=== PATIENT | female | born 1960 | race Caucasian/White ===

== ENCOUNTER 2019-10-31 13:15 | Outpatient (CLI) | payer BC, SELFPAY ==
--- NOTE | 2019-10-31 14:14 | MM_ITS ---
WS: [id number] RIGHT DIGITAL MAMMOGRAPHY WITH CAD CLINICAL INFORMATION: CALS RT BREAST COMPARISON: October 04, 2019 TECHNIQUE: 4 views of the right breast were obtained. FINDINGS: Scattered fibroglandular densities of the right breast. Again seen is the cluster of punctate calcifi cations upper outer right breast in a linear distribution. These are punctate and somewhat coarse in appearance and probably benign. Recommend 6 month follow-up right breast diagnostic mammography to as sess for change. MM/[place] [id number] IMPRESSION: BI-RADS: 3-Probably Benign FOLLOW UP: 6 Month Follow-up
== END 2019-10-31 13:16 | disposition home or self-care (01) ==
LOC: RADSHAW 13:20
PROVIDERS: Family Provider Electrodiagnostic Medicine; PCP Electrodiagnostic Medicine; Visit Provider Electrodiagnostic Medicine
DX: R92.1 Mammographic calcification found on diagnostic imaging of breast (principal)
CPT/HCPCS: 77065

== ENCOUNTER 2020-03-19 12:56 | Outpatient (CLI) | payer BC, SELFPAY ==
--- NOTE | 2020-03-23 11:25 | ONC FU_ITS ---
Dr. Reece Patient Follow-Up Note Patient: Teresa Arrington Unit #: [id number]: 1960 Dicatated By: Virgilio Reece M.D.Date of Visit:March 19, 2020 Onc Med Follow-up/Prog Note Chief Complaint: Breast cancer. 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 She was found on routine mammogram screening in June of 2016 to have a developing density with indistinct margins in the lateral aspect of the left breast, BI-RADS Category 0. A diagnostic mammogram study with ultrasound 07/22/2016 was felt to be most likely benign. A repeat mammogram on 12/30/2016 was again BI-RADS 0. Breast ultrasound on 01/11/2017 showed a 1.4 x 0.6 x 1.5 cm solid hypoechoic lesion in the left breast at the 1 to 2:00 position, BI-RADS 4 category, suspicious. On 01/22/2017 she underwent ultrasound-guided biopsy of the left breast mass. Pathology showed infiltrating adenocarcinoma with medullary features. ER assay was positive at 97% and progesterone assay was positive at 94%. HER-2/christ assay was nonamplified and considered to be negative. The breast prognostic profile showed ER positive at 97% and VA positive at 94%, both strong intensity. The HER-2/christ was nonamplified, 1+ by IHC, amplification ratio by FISH of 1.0 with 1.8 HER-2 copies/cell. The Ki-67 was unfavorable at 28%. On 02/25/2017 show underwent left breast lumpectomy with axillary sentinel lymph node biopsy. Pathology showed grade 2 infiltrating adenocarcinoma with medullary features. The tumor measured 2.0 x 1.8 cm. There was tumor extending to the superior margin. The other margins were free. There was no involvement in 1 axillary sentinel lymph node. Oncotype DX showed a recurrence score of 20, low intermediate risk range, corresponding to a 10 year risk of distant recurrence of 13% following hormonal therapy. She opted not to take adjuvant chemotherapy. She was then given radiation to the left breast. She completed treatment on 05/20/2017 to a total dose of 6000 cGy. Adjuvant hormonal therapy with anastrozole 1 mg daily began in April 2017. Her other medical illnesses include hyperlipidemia, GERD, and anxiety/depression. She is a nonsmoker. INTERIM HISTORY: The anastrozole was stopped as of her follow-up visit on 05/26/2018 due to worsening joint pain and other side effects, including hot flashes and mood changes. It was later restarted, but only for a short time, as her symptoms then worsened again. In November 2018 she began a trial therapy with exemestane 25 mg daily. It was stopped in January due to fatigue and generalized swelling. In February 2019 she tried going back on the anastrozole, but she then stopped it due to recurrence of musculoskeletal pain and swelling. I had seen her for a follow-up visit on 05/24/2019. At that point she was feeling better, and she agreed to begin a trial of further adjuvant hormonal therapy with tamoxifen 20 mg daily. She had stopped tamoxifen within one month due to multiple side effects, including lower abdominal cramping which felt like she was having a menstrual period. She also felt like she was going psycho . She was then followed on observation/expectant management. She is seen for a follow-up visit. She has been feeling good generally. She has good energy and she has normal activity. ECOG score 0. Her appetite is good. She has not had fever. She says her hot flashes are going away now. She has no shortness of breath, cough, or chest pain. She says her acid reflux is not too bad. She has no other GI or complaints. She has no significant joint or bone pain. She does not complain of headache or dizziness. She has a little bit of numbness/tingling in her left hand. She has no other focal neurologic symptoms. Medications: Cholecalciferol 1 (1000 Units) Tablet Oral daily, Citalopram Hydrobromide 1 (20 mg) Tablet Oral daily, Claritin 1 Tablet (of 10 mg) Oral daily, Omeprazole 1 (40 mg) Capsule Delayed Release Oral daily PRN, Simvastatin 1 (40 mg) Tablet Oral daily, Turmeric 2 Capsule Oral daily, Xanax 0.5 (0.25 mg) Tablet Oral at bedtime Allergies: Codeine Sulfate Review of Systems: Constitutional - She has good energy and she has normal activity. Appetite is good and weight is stable. Her hot flashes are going away. No fever. ECOG score is 0, ENMT - Her sinus symptoms have improved with Claritin. No mouth sores. No sore throat or difficulty swallowing, Hematologic/Lymphatic - No abnormal bruising or bleeding, Respiratory - No shortness of breath. No cough. No pleuritic pain or hemoptysis, Cardiovascular - No angina pain. No palpitations, Gastrointestinal - No nausea or vomiting. Her acid reflux is not too bad. No diarrhea or constipation. No blood in the stool or black stools, Genitourinary (F) - No dysuria or hematuria. No urinary frequency. No urgency or incontinence, Musculoskeletal - She has no joint or bone pain, Integumentary - No skin complications, Neurologic - No headache or dizziness. She has a little bit of numbness/tingling in her left hand. She has no other focal neurologic symptoms, Psychiatric - Her anxiety is managed adequately with alprazolam. No depression. No insomnia. Vital Signs: Performed on March 19, 2020 13:14 Height - 59.00 in Weight - 156.0 lbs (LOW) BSA - 1.66 sq.m BMI - 31.51 (HIGH) Temperature - 98.1 F (LOW) Pulse - 76 /min Respiration - 18 /min BP - 139/83 mm(hg) O2 Sat - 96 % Pain - 0 Physical Examination: Constitutional - She looks good generally, Eyes - Sclerae nonicteric. Conjunctivae clear, ENMT - No lesions noted in the oral cavity, Hematologic/Lymphatic - No cervical or clavicular adenopathy, Respiratory - Lungs are clear with good air movement bilaterally, Cardiovascular - Heart rhythm is regular. There is no murmur, gallop, or rub noted, Breasts - Both breasts are generally firm. There are no breast masses noted. There is no axillary adenopathy, Abdomen - Moderately distended. Liver and spleen are not enlarged. There is no abdominal mass or ascites noted and there is no inguinal adenopathy, Extremities - No edema, Neurologic - No focal neurologic deficits noted. Impression: 1. This is a perimenopausal patient with left breast cancer, specifically a grade 2 infiltrating adenocarcinoma with medullary features, stage IA (T1c, N0, M0), ER/VA positive and HER-2/christ nonamplified. 2. She underwent left breast lumpectomy with axillary sentinel lymph node biopsy on 02/25/2017. 3. She was given radiation to the left breast, completed on 05/20/2017 to a total dose of 6000 cGy. 4. Adjuvant hormonal therapy with anastrozole 1 mg daily began in April 2017. 5. She had mild osteopenia on her baseline bone density, T score -1.3. Her other medical illnesses include: 6. Hyperlipidemia. 7. GERD. 8. Anxiety/depression. She initially had experienced some hot flashes and some mood change with the anastrozole, but she had otherwise been tolerating it well. In May 2018 she presented with some new joint pain. It was assumed to be due to the anastrozole. I did have her stop taking it temporarily, but it was later restarted, as she had noticed no significant difference while she was off the medication. During the next year she was on and off treatment with both exemestane and anastrozole. In April 2019 she began a trial of further adjuvant hormonal therapy with tamoxifen, but she experienced multiple side effects, and she stopped taking it within one month. As she was felt to have low-risk disease, she was then followed on observation/expectant management. Overall, she has been doing very well clinically since she stopped the tamoxifen. Thus far during follow-up there has been no evidence of recurrence of the breast cancer. Plan: She remains on observation/expectant management. She will be scheduled for a follow-up visit in 6 months. Signed By: Virgilio Reece M.D. <<Signature on File>>
== END 2020-03-19 12:57 | disposition home or self-care (01) ==
LOC: ONCMED 13:00
PROVIDERS: PCP Electrodiagnostic Medicine; Visit Provider Internal Medicine Medical Oncology
DX: Z08 Encounter for follow-up examination after completed treatment for malignant neoplasm (principal); Z85.3 Personal history of malignant neoplasm of breast; E78.5 Hyperlipidemia, unspecified; K21.9 Gastro-esophageal reflux disease without esophagitis; F41.8 Other specified anxiety disorders; M85.80 Other specified disorders of bone density and structure, unspecified site; Z92.23 Personal history of estrogen therapy; Z92.3 Personal history of irradiation

== ENCOUNTER 2020-04-15 07:13 | Outpatient (CLI) | payer BC, SELFPAY ==
--- NOTE | 2020-04-15 07:21 | MM_ITS ---
WS: [id number] BILATERAL DIGITAL DIAGNOSTIC MAMMOGRAM MAMMOGRAPHY WITH CAD CLINICAL INFORMATION: 6 MO F/U ABNORMAL MAMMOGRAM;HX OF BREAST CA COMPARISON: 10/31/2019 and 10/04/2019 September 26, 2018 TECHNIQUE: Bilateral CC, MLO, and ML views. FINDINGS: Scattered fibroglandular densities of the right breast. Again seen is the cluster of punctate calcifi cations upper outer right breast in a linear distribution. These are punctate and somewhat coarse in appearance and stable. Recommend return to annual diagnostic mammography. MM/[place] [id number] IMPRESSION: BI-RADS: 2-Benign FOLLOW UP: 1 Year Follow-up
== END 2020-04-15 07:14 | disposition home or self-care (01) ==
LOC: RADSHAW 07:15
PROVIDERS: PCP Electrodiagnostic Medicine; Visit Provider Internal Medicine Medical Oncology
DX: Z85.3 Personal history of malignant neoplasm of breast (principal); R92.8 Other abnormal and inconclusive findings on diagnostic imaging of breast
CPT/HCPCS: 77065

== ENCOUNTER 2020-09-26 14:49 | Outpatient (CLI) | payer BC, SELFPAY ==
--- NOTE | 2020-09-29 16:27 | ONC FU_ITS ---
Dr. Reece Patient Follow-Up Note Patient: Teresa Arrington Unit #: [id number]: [id number] Dicatated By: Virgilio Reece M.D.Date of Visit:Sep 26, 2020 Onc Med Follow-up/Prog Note Chief Complaint: Breast cancer. 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 She was found on routine mammogram screening in June of 2016 to have a developing density with indistinct margins in the lateral aspect of the left breast, BI-RADS Category 0. A diagnostic mammogram study with ultrasound 07/22/2016 was felt to be most likely benign. A repeat mammogram on 12/30/2016 was again BI-RADS 0. Breast ultrasound on 01/11/2017 showed a 1.4 x 0.6 x 1.5 cm solid hypoechoic lesion in the left breast at the 1 to 2:00 position, BI-RADS 4 category, suspicious. On 01/22/2017 she underwent ultrasound-guided biopsy of the left breast mass. Pathology showed infiltrating adenocarcinoma with medullary features. ER assay was positive at 97% and progesterone assay was positive at 94%. HER-2/christ assay was nonamplified and considered to be negative. The breast prognostic profile showed ER positive at 97% and ID positive at 94%, both strong intensity. The HER-2/christ was nonamplified, 1+ by IHC, amplification ratio by FISH of 1.0 with 1.8 HER-2 copies/cell. The Ki-67 was unfavorable at 28%. On 02/25/2017 show underwent left breast lumpectomy with axillary sentinel lymph node biopsy. Pathology showed grade 2 infiltrating adenocarcinoma with medullary features. The tumor measured 2.0 x 1.8 cm. There was tumor extending to the superior margin. The other margins were free. There was no involvement in 1 axillary sentinel lymph node. Oncotype DX showed a recurrence score of 20, low intermediate risk range, corresponding to a 10 year risk of distant recurrence of 13% following hormonal therapy. She opted not to take adjuvant chemotherapy. She was then given radiation to the left breast. She completed treatment on 05/20/2017 to a total dose of 6000 cGy. Adjuvant hormonal therapy with anastrozole 1 mg daily began in April 2017. Her other medical illnesses include hyperlipidemia, GERD, and anxiety/depression. She is a nonsmoker. INTERIM HISTORY: The anastrozole was stopped as of her follow-up visit on 05/26/2018 due to worsening joint pain and other side effects, including hot flashes and mood changes. It was later restarted, but only for a short time, as her symptoms then worsened again. In November 2018 she began a trial therapy with exemestane 25 mg daily. It was stopped in January due to fatigue and generalized swelling. In February 2019 she tried going back on the anastrozole, but she then stopped it due to recurrence of musculoskeletal pain and swelling. I had seen her for a follow-up visit on 05/24/2019. At that point she was feeling better, and she agreed to begin a trial of further adjuvant hormonal therapy with tamoxifen 20 mg daily. She had stopped tamoxifen within one month due to multiple side effects, including lower abdominal cramping which felt like she was having a menstrual period. She also felt like she was going psycho . She was then followed on observation/expectant management. She is seen for a follow-up visit. She has been feeling good generally. She has good energy and activity tolerance. ECOG score is 0. Her appetite is good. She has not had fever. She still has some hot flashes and night sweating. She has no shortness of breath, cough, or chest pain. She has a little bit of acid reflux. She has no other GI or complaints. Her joint pain is better, and it bothers her just occasionally now. She has a little bit of numbness in her hands. She has no other focal neurologic symptoms. Medications: Cholecalciferol 1 (1000 Units) Tablet Oral daily, Citalopram Hydrobromide 1 (20 mg) Tablet Oral daily, Claritin 1 Tablet (of 10 mg) Oral daily, Omeprazole 1 (40 mg) Capsule Delayed Release Oral daily PRN, Simvastatin 1 (40 mg) Tablet Oral daily, Turmeric 2 Capsule Oral daily, Xanax 0.5 (0.25 mg) Tablet Oral at bedtime Allergies: Codeine Sulfate Review of Systems: Constitutional - She has good energy and activity tolerance. Appetite is good and her weight is stable. She has not had fever. She does have some hot flashes and night sweating. ECOG score 0, ENMT - Her sinus symptoms have improved with Claritin. No mouth sores. No sore throat or difficulty swallowing, Hematologic/Lymphatic - No abnormal bruising or bleeding, Respiratory - No shortness of breath. No cough. No pleuritic pain or hemoptysis, Cardiovascular - No angina pain. No palpitations, Gastrointestinal - No nausea or vomiting. She has a little bit of acid reflux. No diarrhea or constipation. No blood in the stool or black stools, Genitourinary (F) - No dysuria or hematuria. No urinary frequency. No urgency or incontinence, Musculoskeletal - She has just occasional joint pain now, Integumentary - No skin rash, Neurologic - No headache or dizziness. She has a little bit of numbness in her hands. No other focal neurologic symptoms, Psychiatric - No anxiety or depression. No insomnia. Vital Signs: Performed on Sep 26, 2020 15:56 Height - 59.00 in Weight - 158.6 lbs (HIGH) BSA - 1.67 sq.m BMI - 32.03 (HIGH) Temperature - 98.6 F Pulse - 71 /min Respiration - 18 /min BP - 148/79 mm(hg) (HIGH) O2 Sat - 97 % Pain - 0 Physical Examination: Constitutional - She looks good generally, Eyes - Sclerae nonicteric. Conjunctivae clear, ENMT - No lesions noted in the oral cavity, Hematologic/Lymphatic - No cervical, clavicular, or axillary adenopathy, Respiratory - Lungs are clear with good air movement bilaterally, Cardiovascular - Heart rhythm is regular. There is no murmur, gallop, or rub noted, Abdomen - Moderately distended. Liver and spleen are not enlarged. There is no abdominal mass or ascites noted and there is no inguinal adenopathy, Extremities - No edema, Neurologic - No focal neurologic deficits noted. Impression: 1. This is a perimenopausal patient with left breast cancer, specifically a grade 2 infiltrating adenocarcinoma with medullary features, stage IA (T1c, N0, M0), ER/ID positive and HER-2/christ nonamplified. 2. She underwent left breast lumpectomy with axillary sentinel lymph node biopsy on 02/25/2017. 3. She was given radiation to the left breast, completed on 05/20/2017 to a total dose of 6000 cGy. 4. Adjuvant hormonal therapy with anastrozole 1 mg daily began in April 2017. 5. She had mild osteopenia on her baseline bone density, T score -1.3. Her other medical illnesses include: 6. Hyperlipidemia. 7. GERD. 8. Anxiety/depression. She initially had experienced some hot flashes and some mood change with the anastrozole, but she had otherwise been tolerating it well. In May 2018 she presented with some new joint pain. It was assumed to be due to the anastrozole. I did have her stop taking it temporarily, but it was later restarted, as she had noticed no significant difference while she was off the medication. During the next year she was on and off treatment with both exemestane and anastrozole. In April 2019 she began a trial of further adjuvant hormonal therapy with tamoxifen, but she experienced multiple side effects, and she stopped taking it within one month. As she was felt to have low-risk disease, she was then followed on observation/expectant management. Overall, she has been doing very well clinically since she stopped the tamoxifen. Thus far during follow-up there has been no evidence of recurrence of the breast cancer. Plan: She remains on observation/expectant management. Her yearly diagnostic mammogram is due in October, and that will be scheduled. I will just plan to see her again in conjunction with her next yearly mammogram. Signed By: Virgilio Reece M.D. <<Signature on File>>
== END 2020-09-26 14:50 | disposition home or self-care (01) ==
LOC: ONCMED 14:53
PROVIDERS: PCP Electrodiagnostic Medicine; Visit Provider Internal Medicine Medical Oncology
DX: Z08 Encounter for follow-up examination after completed treatment for malignant neoplasm (principal); Z85.3 Personal history of malignant neoplasm of breast; M85.80 Other specified disorders of bone density and structure, unspecified site; E78.5 Hyperlipidemia, unspecified; K21.9 Gastro-esophageal reflux disease without esophagitis; F41.9 Anxiety disorder, unspecified; F32.9 Major depressive disorder, single episode, unspecified; Z79.899 Other long term (current) drug therapy; Z90.12 Acquired absence of left breast and nipple; Z92.3 Personal history of irradiation
CPT/HCPCS: G0463

== ENCOUNTER 2021-04-16 11:04 | Outpatient (CLI) | payer OTHER, SELFPAY ==
--- NOTE | 2021-04-16 11:08 | MM_ITS ---
WS: [id number] DIAGNOSTIC BILATERAL DIGITAL MAMMOGRAM WITH CAD HISTORY: HX OF BREAST CA COMPARISON: 04/15/2020 and 10/04/2019 and 09/26/2018 TECHNIQUE: Bilateral craniocaudad, mediolateral oblique, and mediolateral views are submitted. Comput er aided detection utilized. Breast composition: There are scattered areas of fibroglandular density. Postsurgical changes in the upper outer quadrant of the LEFT breast are stable. There is an area of architectural distortion whic h has slowly improved since 2018. Additional calcifications in each breast are benign. MM/[place] [id number] IMPRESSION: BI-RADS: 2-Benign FOLLOW UP: 1 Year Follow-up
== END 2021-04-16 11:05 | disposition home or self-care (01) ==
LOC: RADSHAW 11:07
PROVIDERS: PCP Electrodiagnostic Medicine; Visit Provider Internal Medicine Medical Oncology
DX: Z85.3 Personal history of malignant neoplasm of breast (principal)
CPT/HCPCS: 77066

== ENCOUNTER 2022-04-20 15:28 | Outpatient (CLI) | payer OTHER, SELFPAY ==
--- NOTE | 2022-04-20 15:35 | MM_ITS ---
WS: [id number] BILATERAL 3D TOMOSYNTHESIS DIGITAL DIAGNOSTIC MAMMOGRAPHY WITH CAD CLINICAL INFORMATION: HX OF BREAST CA COMPARISON: April 16, 2021 TECHNIQUE: Bilateral CC, MLO, and ML views. FINDINGS: Scattered fibroglandular densities bilaterally. Incidental punctate calcifications bilateral breast. Stable postoperative lumpectomy changes upper outer LEFT breast with parenchymal fibrosis. No suspicious focal mass, asymmetry, calcifications, or architectural distortion. No evidence of blake gnancy. MM/[place] [id number] IMPRESSION: BI-RADS: 2-Benign FOLLOW UP: 1 Year Follow-up Recommend return to annual diagnostic mammography.
== END 2022-04-20 15:29 | disposition home or self-care (01) ==
PROVIDERS: PCP Electrodiagnostic Medicine; Visit Provider Internal Medicine Medical Oncology
DX: Z85.3 Personal history of malignant neoplasm of breast (principal)
CPT/HCPCS: 77062

== ENCOUNTER 2023-04-26 11:21 | Outpatient (CLI) | payer OTHER, SELFPAY ==
--- NOTE | 2023-04-26 11:33 | MM_ITS ---
WS: [id number] DIAGNOSTIC BILATERAL DIGITAL BREAST TOMOSYNTHESIS MAMMOGRAPHY WITH CAD HISTORY: ANNUAL - HX BR CA COMPARISON: 04/20/2022, 04/16/2021 TECHNIQUE: Bilateral craniocaudad, mediolateral oblique, and mediolateral views are submitted with to mosynthesis and SM. Computer aided detection utilized. Breast composition: There are scattered areas of fibroglandular density. Postoperative changes in the upper outer quadrant of the LEFT breast is similar to prior studies. No increase in size of the spic ulation and postoperative cavity. Benign dystrophic calcifications in each breast. MM/[place] [id number] IMPRESSION: BI-RADS: 2-Benign FOLLOW UP: 1 Year Follow-up
== END 2023-04-26 11:22 | disposition home or self-care (01) ==
PROVIDERS: PCP Electrodiagnostic Medicine; Visit Provider Electrodiagnostic Medicine
DX: Z85.3 Personal history of malignant neoplasm of breast (principal)
CPT/HCPCS: 77062; G0279

== ENCOUNTER 2024-05-17 09:30 | Outpatient (CLI) | payer OTHER, SELFPAY ==
--- NOTE | 2024-05-17 09:35 | MM_ITS ---
WS: [id number] DIAGNOSTIC BILATERAL DIGITAL BREAST TOMOSYNTHESIS MAMMOGRAPHY WITH CAD HISTORY: HX OF BREAST CANCER COMPARISON: 04/26/2023, 04/20/2022 and 04/16/2021 TECHNIQUE: Bilateral craniocaudad, mediolateral oblique, and mediolateral views are submitted with to mosynthesis and SM. Computer aided detection utilized. Breast composition: There are scattered areas of fibroglandular density. Postsurgical lumpectomy site in the upper outer quadrant of the LEFT breast remains stable. Benign dystrophic calcifications. The area of distortion associated with the lumpectomy is stable. MM/[place] [id number] IMPRESSION: BI-RADS: 2-Benign FOLLOW UP: 1 Year Follow-up
== END 2024-05-17 09:31 | disposition home or self-care (01) ==
PROVIDERS: PCP Electrodiagnostic Medicine; Visit Provider Electrodiagnostic Medicine
DX: Z85.3 Personal history of malignant neoplasm of breast (principal); R92.323 Mammographic fibroglandular density, bilateral breasts; Z98.890 Other specified postprocedural states; R92.1 Mammographic calcification found on diagnostic imaging of breast
CPT/HCPCS: 77062; G0279

== ENCOUNTER 2025-05-29 10:20 | Outpatient (CLI) | payer MEDICARE, OTHER, SELFPAY ==
--- NOTE | 2025-05-29 10:30 | MM_ITS ---
WS: [id number] DIAGNOSTIC BILATERAL DIGITAL BREAST TOMOSYNTHESIS MAMMOGRAPHY WITH CAD RIGHT breast ultrasound, limited HISTORY: BREAST MASS, mass near the RIGHT axillary tail. COMPARISON: 05/17/2024, 04/26/2023, 04/20/2022 TECHNIQUE: Bilateral craniocaudad, mediolateral oblique, and mediolateral views are submitted with tomosynthesis and SM. Spot compression RIGHT CC and MLO. Computer aided detection utilized. Breast composition: There are scattered areas of fibroglandular density. Triangular marker is placed over the palpable abnormality in the high RIGHT axillary tail. There is no underlying mass identified. No lymph node. There are benign calcifications in each breast. Post biopsy and posttreatment site in the upper outer quadrant of the LEFT breast is stable. RIGHT breast ultrasound, limited. No ultrasound abnormality is noted towards the RIGHT axilla. Patient did directed airport security screener to the area of concern and palpable abnormality. This palpable site is not as prominent today. MM/MM diag BI tomosynthesis [id number] IMPRESSION: BI-RADS: 2 - Benign. FOLLOW UP: 1 Year Follow-up No abnormality noted towards the RIGHT axilla.
== END 2025-05-29 10:21 | disposition home or self-care (01) ==
LOC: RAD 10:25
PROVIDERS: PCP Electrodiagnostic Medicine; Visit Provider Electrodiagnostic Medicine
DX: N63.10 Unspecified lump in the right breast, unspecified quadrant (principal); R92.323 Mammographic fibroglandular density, bilateral breasts
CPT/HCPCS: 76642; 77062; G0279